=== PATIENT | female | born 1970 | race African-American/Black ===

== ENCOUNTER 2020-01-10 13:31 | Emergency (ER) | payer MEDICARE, MEDICAID ==
[~2020-01-10] VITALS: Ht 180.3 cm; Wt 112.9 kg
[2020-01-10 13:40] VITALS: BP 179/91
[2020-01-10] MEDS ORDERED: IBUPROFEN 800 MG TAB PO ONE (15:00)
== END 2020-01-10 15:25 | disposition home or self-care (01) ==
LOC: ER 13:31
DX: S83.91XA Sprain of unspecified site of right knee, initial encounter (principal); M17.11 Unilateral primary osteoarthritis, right knee; E11.9 Type 2 diabetes mellitus without complications; I10 Essential (primary) hypertension; G89.29 Other chronic pain; M54.5 Low back pain; X50.1XXA Overexertion from prolonged static or awkward postures, initial encounter; Y93.89 Activity, other specified; Y92.89 Other specified places as the place of occurrence of the external cause; Y99.8 Other external cause status
CPT/HCPCS: 73562